=== PATIENT | male | born 1970 | race Caucasian/White ===

== ENCOUNTER → 2018-08-12 | Outpatient (CLI) | payer OTHER ==
[~2018-08-12] MED LIST: GADOBUTROL 10 ML VIAL IVP ONE
== END ==
LOC: FIMAGING 06:48
PROVIDERS: ATTEND Physical Medicine & Rehabilitation
DX: M50.321 Other cervical disc degeneration at C4-C5 level (principal); G95.0 Syringomyelia and syringobulbia; Z98.1 Arthrodesis status
CPT/HCPCS: A9585